=== PATIENT | male | born 1955 | race Caucasian/White ===

== ENCOUNTER 2020-03-21 19:51 | Emergency (ER) | payer OTHER ==
[~2020-03-21] VITALS: Ht 175.3 cm; Wt 73.0 kg
[~2020-03-21 19:51] MED LIST: CHOLESTYRAMINE PO; CLOP75TA33 PO; METF-416 PO; PIOG15TA6 PO; TRAZ-252 PO
[2020-03-21] MEDS ORDERED: HYDROCODONE/ACETAMINOPHEN 5/325MG TABLET PO ONE (23:00)
[2020-03-21 23:08] VITALS: BP 118/75
== END 2020-03-22 00:03 | disposition home or self-care (01) ==
LOC: ER 20:09
DX: S20.212A Contusion of left front wall of thorax, initial encounter (principal); E11.9 Type 2 diabetes mellitus without complications; Z79.84 Long term (current) use of oral hypoglycemic drugs; V43.62XA Car passenger injured in collision with other type car in traffic accident, initial encounter; Y93.89 Activity, other specified; Y92.488 Other paved roadways as the place of occurrence of the external cause
CPT/HCPCS: 71045; 93005; 99283